=== PATIENT | female | born 1945 | race Caucasian/White ===

== ENCOUNTER 2016-11-28 07:13 | Day surgery (SDC) | payer BC ==
--- NOTE | ~2016-11-28 | EGD ---
EGD REPORT [facility] [address] [place] [address] NAME: ANNMARIE CALLAWAY : 45 STATUS : REG [facility] [place] PAT#: [id number] AGE: 70 ADM/REG DATE : 11/28/16 MR#: [id number] REPORT SERV DATE: 11/28/16 DICTATED BY: BENJAMÍN ROSADO DATE: 11/28/16 REPORT STATUS : Draft TRANSCRIBED BY: [facility] DATE: 11/28/16 [facility] Patient Name: Annmarie Callaway Date of : 1945 Attending MD: GABRIELA BLUNT MD Procedure Date No Time: 11/28/2016 Procedure: Colonoscopy Indications: Screening for colorectal malignant neoplasm; average risk. Patient Profile: Informed consent was obtained from the patient by me prior to the procedure. Risks, benefits, and alternatives were discussed including the risk of bleeding, perforation, infection, reaction to medicine, missed lesion, and cardiopulmonary complications. Referring MD: Joya Harper Medicines: Monitored Anesthesia Care Complications: No immediate complications. Procedure: After I obtained informed consent, the scope was passed under direct vision. Throughout the procedure, the patient's blood pressure, pulse, and oxygen saturations were monitored continuously. The PCF [id number] was introduced through the anus and advanced to the cecum, identified by appendiceal orifice and ileocecal valve. The colonoscope was slowly withdrawn with careful examination all mucosal surfaces including specific attention around flexures and tip deflection behind folds; retroflexion performed in rectum. The colonoscopy was performed without difficulty. The patient tolerated the procedure well. The quality of the bowel preparation was adequate. The ileocecal valve, appendiceal orifice and rectum were photographed. Findings: The colon (entire examined portion) appeared normal. Internal hemorrhoids were found, and they were moderate. A single medium-mouthed diverticulum was found at the hepatic flexure. Impression: - The entire examined colon is normal. - Internal hemorrhoids. - Diverticulosis at the hepatic flexure. Recommendation: - Patient has a contact number available for emergencies. The signs and symptoms of potential delayed complications were discussed with the patient. Return to normal activities tomorrow. Written discharge EGD REPORT [address] [address] NAME: ANNMARIE CALLAWAY : 45 STATUS : REG [facility] [place] PAT#: [id number] AGE: 70 ADM/REG DATE : 11/28/16 MR#: [id number] REPORT SERV DATE: 11/28/16 DICTATED BY: BENJAMÍN ROSADO DATE: 11/28/16 REPORT STATUS : Draft TRANSCRIBED BY: [employer] DATE: 11/28/16 instructions were provided to the patient. - Regular diet. - Continue present medications. - Repeat colonoscopy in 10 years for screening purposes. Procedure Code(s): --- Professional --- 61481, Colonoscopy, flexible, proximal to splenic flexure; diagnostic, with or without collection of specimen(s) by brushing or washing, with or without colon decompression (separate procedure) Diagnosis Code(s): --- Professional --- K64.8, Other hemorrhoids Z12.11, Encounter for screening for malignant neoplasm of colon CPT copyright 2013 [employer]. All rights reserved. The codes documented in this report are preliminary and upon oracle architect review may be revised to meet current compliance requirements. GABRIELA BLUNT MD 11/28/2016 9:18 AM This report has been signed electronically. Number of Addenda: 0 Note Initiated On: 11/28/2016 8:50 AM Scope Withdrawal Time 0 hours 8 minutes 34 seconds [id number] [id number]
[~2016-11-28 07:13] MED LIST: ACET500CAP PO; AMB10 PO; ASABAYER PO; CRESTOR10 PO; LEVOTHYROXIN100 MCG PO; MAX25 PO; MOBIC15 MG PO; PREV15 PO; PRILO PO; PRISTIQ50 MG PO; ULTRAM50 PO; VIIBRYD20 MG PO; [UNRECOGNIZED DRUG - CODE] PO; [UNRECOGNIZED DRUG - OTHER] PO; [UNRECOGNIZED DRUG - OTHER] PO
== END 2016-11-28 23:59 | disposition home or self-care (01) ==
LOC: DMU 07:13
PROVIDERS: Internal Medicine Gastroenterology
PROC: 0DJD8ZZ Inspection of Lower Intestinal Tract, Via Natural or Artificial Opening Endoscopic (ICD-10-PCS; principal; 2016-11-28 08:30)
DX: Z12.11 Encounter for screening for malignant neoplasm of colon (principal); K64.8 Other hemorrhoids; E03.9 Hypothyroidism, unspecified; K31.84 Gastroparesis; E78.00 Pure hypercholesterolemia, unspecified; M51.36 Other intervertebral disc degeneration, lumbar region; K21.9 Gastro-esophageal reflux disease without esophagitis; F32.9 Major depressive disorder, single episode, unspecified; F41.9 Anxiety disorder, unspecified; Z79.899 Other long term (current) drug therapy; Z90.89 Acquired absence of other organs; Z98.41 Cataract extraction status, right eye; Z98.42 Cataract extraction status, left eye; Z96.653 Presence of artificial knee joint, bilateral; Z98.890 Other specified postprocedural states